=== PATIENT | female | born 1990 | race Caucasian/White ===

== ENCOUNTER → 2016-11-25 | Outpatient (CLI) | payer BC ==
--- NOTE | 2016-11-26 20:39 | US ---
Examination: Greater than 14 weeks transabdominal ultrasound with color Doppler and M-mode evaluatio n. HISTORY: FINDINGS: LMP is 07/04/2016 EVALUATION: Anterior placenta with a breech lie and grade 1. Visually amniotic fluid is within normal limits. Three-vessel cord is seen. Ventricles are within normal limits. Nuchal fold thickness is not provided. Four chamber heart is noted. Heart rate is 150 beats per minute, which is possibly irregular. BIOMETRY AND GESTATIONAL AGE: Biparietal diameter 3.8 cm. The abdominal circumference measures 16.2 cm. The femoral length is 3.2 cm with head circumference of 17 cm. Gestational age is 19 weeks and 4 days. The expected date of de livery is approximately 04/17/2017. Fetus weight is 355 grams. Overall the fetus is within the 30th p ercentile. Other detail anatomy summarized into PACs sheet after the images. No anatomical anomalies. IMPRESSION: 1. Single active IU with breech fetus. Anterior placenta with grade 1, no placenta previa. 2. The heart rate is noted is possibly irregular.
== END | disposition home or self-care (01) ==
LOC: MW.US 09:54
PROVIDERS: ATTEND Advanced Practice Midwife
DX: Z36 Encounter for antenatal screening of mother (principal); O32.1XX1 Maternal care for breech presentation, fetus 1; Z3A.19 19 weeks gestation of pregnancy
CPT/HCPCS: 76805; 76805-26

== ENCOUNTER → 2016-12-26 | Outpatient (CLI) | payer BC, MEDICAID | LOC: MW.CHOBGYN 08:59 | PROVIDERS: ATTEND Advanced Practice Midwife | DX: Z34.90 Encounter for supervision of normal pregnancy, unspecified, unspecified trimester (principal); N39.0 Urinary tract infection, site not specified | CPT/HCPCS: 81001; 87086; 87491; 87591 ==

== ENCOUNTER → 2017-01-14 | Outpatient (CLI) | payer BC, MEDICAID | LOC: MW.CHOBGYN 08:30 | PROVIDERS: ATTEND Advanced Practice Midwife | DX: O09.899 Supervision of other high risk pregnancies, unspecified trimester (principal) | CPT/HCPCS: 36415; 82950; 85027; 86850; 86900; 86901; J2790 ==

== ENCOUNTER 2017-04-01 15:01 | Inpatient (IN) | payer MEDICAID ==
[2017-04-01] MEDS ORDERED: Misoprostol 200 MCG Tab PO PRN (15:29)
[2017-04-01] MEDS ORDERED: Methylergonovine 0.2 MG/1 ML Amp IM PRN (15:29)
[2017-04-01] MEDS ORDERED: Water For Irrigation,Sterile 1,000 ML Container IRR PRN (15:29)
[2017-04-01] MEDS ORDERED: Carboprost Tromethamine 250 MCG/1 ML Amp IM PRN (15:29)
[2017-04-01] MEDS ORDERED: Sodium Chloride 0.9% 10 ML Syringe FLUSH PRN (15:29)
[2017-04-01] MEDS ORDERED: Lidocaine 1% 50 ML MDV INJECT PRN (15:29)
[2017-04-01] MEDS ORDERED: Sodium Chloride 0.9% 2.5 ML Syringe FLUSH PRN (15:29)
[2017-04-01] MEDS ORDERED: Nalbuphine 10 MG/1 ML Vial IVPUSH PRN (15:29)
[2017-04-01] MEDS ORDERED: Butorphanol 1 MG/ML SDV IVPUSH PRN (15:29)
[2017-04-01] MEDS ORDERED: Oxytocin/Lactated Ringers 30 UNIT/500 ML BAG IV SCH ×2 (15:30→20:00)
[2017-04-01] MEDS: Lactated Ringers 1,000 ML IV SCH ×3 (15:37→16:58)
--- NOTE | 2017-04-01 16:11 | PCM.LDHP ---
L&D History of Present Illness - General Date of Service: 04/01/17 Admit Problem/Dx: Patient Status Order with Admit Dx/Problem 04/01/17 15:29 Patient Status [ADT] Routine Admission Diagnosis/Problem Admission Diagnosis/Problem Source of Information: Patient History Limitations: Reports: No Limitations - History of Present Illness Improves with: Reports: None Worsens with: Reports: None Associated Symptoms: Reports: N - Related Data Allergies/Adverse Reactions: Allergies Allergy/AdvReac Type Severity Reaction Status Date / Time No Known Allergies Allergy Verified 04/01/17 15:29 H&P Review of Systems - Review of Systems: Review Of Systems: See Below General: Reports: No Symptoms HEENT: Reports: No Symptoms Pulmonary: Reports: No Symptoms Cardiovascular: Reports: No Symptoms Gastrointestinal: Reports: No Symptoms Genitourinary: Reports: No Symptoms Musculoskeletal: Reports: No Symptoms Skin: Reports: No Symptoms Psychiatric: Reports: No Symptoms Neurological: Reports: No Symptoms Hematologic/Lymphatic: Reports: No Symptoms Immunologic: Reports: No Symptoms L&D Exam - Exam Exam: See Below - Vital Signs Weight: 54.885 kg - Exam General: Alert, Oriented, Cooperative HEENT: Hearing Intact Lungs: Normal Respiratory Effort GI/Abdominal Exam: Soft, Non-Tender, No Organomegaly (gravid) Rectal Exam: Deferred Genitourinary: Cervical dilitation Back Exam: Full Range of Motion Extremities: Normal Range of Motion, Non-Tender, No Pedal Edema Skin: Warm, Dry, Intact Neurological: Cranial Nerves Intact Psychiatric: Alert, Normal Affect, Normal Mood - Patient Data Lab Results Last 24 hrs: Laboratory Results - last 24 hr 04/01/17 Range/Units 13:47 WBC 18.09 H (4.0-11.0) K/uL RBC 4.15 L (4.30-5.90) M/uL Hgb 12.0 (12.0-16.0) g/dL Hct 36.3 (36.0-46.0) % MCV 87.5 (80.0-98.0) fL MCH 28.9 (27.0-32.0) pg MCHC 33.1 (31.0-37.0) g/dL RDW Std Deviation 45.4 (28.0-62.0) fl RDW Coeff of Peyton 14 (11.0-15.0) % Plt Count 240 (150-400) K/uL MPV 11.20 (7.40-12.00) fL Nucleated RBC % 0.0 /100WBC Nucleated RBCs # 0 K/uL Result Diagrams: 04/01/17 13:47 - Problem List (1) Supervision of normal IUP (intrauterine ) in primigravida SNOMED Code(s): 82404589, 975602352, 695225942, 694647034 ICD Code: Z34.00 - ENCNTR FOR SUPRVSN OF NORMAL FIRST , UNSP TRIMESTER Status: Acute Priority: High Current Visit: Yes Qualifiers: Trimester: third trimester Qualified Code(s): Z34.03 - Encounter for supervision of normal first , third trimester Problem List Initiated/Reviewed/Updated: Yes Orders Last 24hrs: Active Orders 24 hr Category Date Time Status Patient Status [ADT] Routine ADT 04/01/17 15:29 Active Heart Tones [RC] CONTINUOUS Care 04/01/17 15:29 Active Non Stress Test [RC] PER UNIT ROUTINE Care 04/01/17 15:29 Active May Shower [RC] ASDIRECTED Care 04/01/17 15:29 Active Notify Provider [RC] PRN Care 04/01/17 15:29 Active Up ad Martita [RC] ASDIRECTED Care 04/01/17 15:29 Active Vaginal Exam [RC] PRN Care 04/01/17 15:29 Active Vital Signs [RC] PER UNIT ROUTINE Care 04/01/17 15:29 Active TYPE AND SCREEN [BBK] Routine Lab 04/01/17 13:47 Received Butorphanol [Stadol] Med 04/01/17 15:29 Active 1 mg IVPUSH Q1H PRN Carboprost Tromethamine [Hemabate DS] Med 04/01/17 15:29 Active 250 mcg IM ASDIRECTED PRN Lactated Ringers [Ringers, Lactated] 1,000 ml Med 04/01/17 15:30 Active IV ASDIRECTED Lidocaine 1% [Xylocaine 1%] Med 04/01/17 15:29 Active 50 ml INJECT .ONCE PRN Methylergonovine [Methergine] Med 04/01/17 15:29 Active 0.2 mg IM ASDIRECTED PRN Misoprostol [Cytotec] Med 04/01/17 15:29 Active 200 mcg PO .ONCE PRN Nalbuphine [Nubain] Med 04/01/17 15:29 Active 10 mg IVPUSH Q1H PRN Sodium Chloride 0.9% [Saline Flush] Med 04/01/17 15:29 Active 10 ml FLUSH ASDIRECTED PRN Sodium Chloride 0.9% [Saline Flush] Med 04/01/17 15:29 Active 2.5 ml FLUSH ASDIRECTED PRN Water For Irrigation,Sterile [Sterile Water for Med 04/01/17 15:29 Active Irrigation] 1,000 ml IRR ASDIRECTED PRN Scalp Electrode [WOMSER] Per Unit Routine Oth 04/01/17 15:29 Ordered Peripheral IV Insertion Adult [OM.PC] Routine Oth 04/01/17 15:29 Ordered Resuscitation Status Routine Resus Stat 04/01/17 15:29 Ordered Medication Orders Butorphanol Tartrate (Stadol) 1 mg IVPUSH Q1H PRN PRN Reason: Pain Carboprost Tromethamine (Hemabate Ds) 250 mcg IM ASDIRECTED PRN PRN Reason: Post Hemorrhage Lactated Ringer's (Ringers, Lactated) 1,000 mls @ 150 mls/hr IV ASDIRECTED MILTON Last Admin: 04/01/17 15:37 Dose: 999 mls/hr Lidocaine HCl (Xylocaine 1%) 50 ml INJECT .ONCE PRN PRN Reason: Laceration repair Methylergonovine Maleate (Methergine) 0.2 mg IM ASDIRECTED PRN PRN Reason: Post Hemorrhage Misoprostol (Cytotec) 200 mcg PO .ONCE PRN PRN Reason: Post Hemorrhage Nalbuphine HCl (Nubain) 10 mg IVPUSH Q1H PRN PRN Reason: Pain (severe 7-10) Stop: 04/01/17 17:30 Sodium Chloride (Saline Flush) 10 ml FLUSH ASDIRECTED PRN PRN Reason: Keep Vein Open Sodium Chloride (Saline Flush) 2.5 ml FLUSH ASDIRECTED PRN PRN Reason: Keep Vein Open Sterile Water (Sterile Water For Irrigation) 1,000 ml IRR ASDIRECTED PRN PRN Reason: delivery Assessment/Plan Comment:: Labor: A: 26yo G1Po EDC 04/10/2017 38 5/7wks labor, O-, RI, GBS neg. P: Admit to L&D, epidural now, anticipate
[2017-04-01] MEDS ORDERED: fentaNYL 100 MCG/2 ML SDV ONE (16:52)
--- NOTE | 2017-04-01 17:27 | PCM.PREANE ---
Preanesthetic Assessment - Anesthesia/Transfusion/Family Hx Anesthesia History: No Prior Anesthesia Family History of Anesthesia Reaction: No Transfusion History: No Prior Transfusion(s) - Review of Systems General: No Symptoms Pulmonary: No Symptoms Cardiovascular: No Symptoms Gastrointestinal: No Symptoms Neurological: No Symptoms Other: Reports: None - Physical Assessment NPO Status Date: 04/01/17 NPO Status Time: 17:22 (cl liquids) Height: 1.49 m Weight: 54.885 kg ASA Class: 2 Mental Status: Alert & Oriented x3 Airway Class: Mallampati = 2 Dentition: Reports: Normal Dentition Thyro-Mental Finger Breadths: 2 Mouth Opening Finger Breadths: 2 ROM/Head Extension: Full Lungs: Clear to Auscultation, Normal Respiratory Effort Cardiovascular: Regular Rate - Lab Values: Laboratory Last Values WBC 18.09 K/uL (4.0-11.0) H 04/01/17 13:47 RBC 4.15 M/uL (4.30-5.90) L 04/01/17 13:47 Hgb 12.0 g/dL (12.0-16.0) 04/01/17 13:47 Hct 36.3 % (36.0-46.0) 04/01/17 13:47 MCV 87.5 fL (80.0-98.0) 04/01/17 13:47 MCH 28.9 pg (27.0-32.0) 04/01/17 13:47 MCHC 33.1 g/dL (31.0-37.0) 04/01/17 13:47 RDW Std Deviation 45.4 fl (28.0-62.0) 04/01/17 13:47 RDW Coeff of Peyton 14 % (11.0-15.0) 04/01/17 13:47 Plt Count 240 K/uL (150-400) 04/01/17 13:47 MPV 11.20 fL (7.40-12.00) 04/01/17 13:47 Nucleated RBC % 0.0 /100WBC 04/01/17 13:47 Nucleated RBCs # 0 K/uL 04/01/17 13:47 Blood Type O NEGATIVE 04/01/17 13:47 Antibody Screen NEGATIVE 04/01/17 13:47 - Allergies Allergies/Adverse Reactions: Allergies Allergy/AdvReac Type Severity Reaction Status Date / Time No Known Allergies Allergy Verified 04/01/17 15:29 - Blood Blood Available: Yes Product(s) Available: PRBC - Acknowledgements Anesthesia Type Planned: Epidural Pt an Appropriate Candidate for the Planned Anesthesia: Yes Alternatives and Risks of Anesthesia Discussed w Pt/Guardian: Yes Pt/Guardian Understands and Agrees with Anesthesia Plan: Yes 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: Neurological History: Reports: Migraines - CURRENT (IN HOUSE) MEDS Current Meds: Current Medications Butorphanol Tartrate (Stadol) 1 mg IVPUSH Q1H PRN PRN Reason: Pain Carboprost Tromethamine (Hemabate Ds) 250 mcg IM ASDIRECTED PRN PRN Reason: Post Hemorrhage Lactated Ringer's (Ringers, Lactated) 1,000 mls @ 150 mls/hr IV ASDIRECTED MILTON Last Admin: 04/01/17 16:58 Dose: 999 mls/hr Lidocaine HCl (Xylocaine 1%) 50 ml INJECT .ONCE PRN PRN Reason: Laceration repair Methylergonovine Maleate (Methergine) 0.2 mg IM ASDIRECTED PRN PRN Reason: Post Hemorrhage Misoprostol (Cytotec) 200 mcg PO .ONCE PRN PRN Reason: Post Hemorrhage Nalbuphine HCl (Nubain) 10 mg IVPUSH Q1H PRN PRN Reason: Pain (severe 7-10) Stop: 04/01/17 17:30 Sodium Chloride (Saline Flush) 10 ml FLUSH ASDIRECTED PRN PRN Reason: Keep Vein Open Sodium Chloride (Saline Flush) 2.5 ml FLUSH ASDIRECTED PRN PRN Reason: Keep Vein Open Sterile Water (Sterile Water For Irrigation) 1,000 ml IRR ASDIRECTED PRN PRN Reason: delivery Discontinued Medications Fentanyl (Sublimaze) Confirm Administered Dose 100 mcg .ROUTE .STK-MED ONE Stop: 04/01/17 16:53 Oxytocin/Lactated Ringer's (Pitocin In Lr 30 Units/500 Ml) 30 unit in 500 mls @ 999 mls/hr IV TITRATE MILTON PRN Reason: 999 MUNITS/MIN Stop: 04/01/17 16:01 Ropivacaine/Fentanyl/NS (Fentanyl 2 Mcg-Ropiv 0.2%-Ns) Confirm Administered Dose 100 mls @ as directed .ROUTE .[employer] ONE Stop: 04/01/17 16:54 - Pre-Procedure Checklist Attending Provider Aware: Yes Chart Reviewed: Yes Consent Signed: Yes Labs Reviewed: Yes VS/FHR Reviewed: Yes Patient Identification Confirmation Method: Reports: Verbal Patient Pt an Appropriate Candidate for the Planned Anesthesia: Yes Alternatives and Risks of Anesthesia Discussed w Pt/Guardian: Yes - Procedure Procedure Start Date: 04/01/17 Procedure Start Time: 16:[address]: Reports: Blood Pressure, Heart Rate, SPO2 Functional IV: Yes Safety Measures: Reports: Patient Identified, Procedure Verified, Site Verified , Procedure Time Out Patient Position: Reports: Sitting (@ 1656) Prep: Reports: Betadine x3 Local Anesthetic: Reports: Intradermal Wheal w Lidocaine 1% Regional Placement Level: Reports: L3-4 Needle: Reports: 17 g Touhy Approach: Reports: Midline Technique: Reports: ROSA Glass Syringe (with 3 ml sterile water) ROSA Needle Depth (cm): 4 cm Parasthesia: Reports: None Fluid Obtained: Reports: None Catheter Depth at Skin (cm): 20 cm Test Dose Time: 17:03 Test Dose Medication: Reports: Lidocaine 1.5% w Epinephrine 1:200,000 (3 ml) Test Dose Response: Reports: Negative Loading Dose Time: 17:09 Loading Dose Medication: 100 mcg fentanyl Loading Dose Patient Position: semi fowlers with YULIA Continuous Infusion Start Time: 17:15 Continuous Infusion Medication: 100 ml 0.2% ropivacaine with 200 mcg fentanyl added Continuous Infusion Rate: 6 ml/hr Continuous Infusion PCS Bolus Option: 5 ml every 15 min Patient Position Post Placement: Reports: Semi-fowlers/YULIA Post-procedure Pain Level: "0/10" VS and FHR Monitored in Unit Post Placement: Yes Procedure End Date: 04/01/17 Procedure End Time: 17:34 Procedure Comment: Pt tolerated procedure well.
[2017-04-02] MEDS: Lactated Ringers 1,000 ML IV SCH ×4 (01:03→22:15)
[2017-04-02] MEDS ORDERED: Acetaminophen 500 MG Tab PO ONE (03:58)
--- NOTE | 2017-04-02 04:19 | PCM.SN ---
- Free Text/Narrative Note: [id number]: Called for refill of epidural infusion. Pt reports minimal discomfort to abdomen with contractions but is having back pain possibly related to her history of sciatic nerve pain/problems secondary to scoliosis. She has used EMT/DISPATCHER button which has provided some relief. 100 ml 0.2% ropivacaine with 2mcg/ ml fentanyl replaced and rate resumed as prior. VSS.
[2017-04-02] MEDS ORDERED: Oxytocin 10 Units/1 ML SDV ONE ×2 (15:47)
[2017-04-02] MEDS ORDERED: Methylergonovine 0.2 MG/1 ML Amp ONE (15:50)
[2017-04-02] MEDS ORDERED: Carboprost Tromethamine 250 MCG/1 ML Amp ONE (15:50)
[2017-04-02] MEDS ORDERED: fentaNYL 100 MCG/2 ML SDV ONE ×2 (16:07→17:10)
[2017-04-02] MEDS ORDERED: Bupivacaine 0.5% 10 ML SDV ONE (16:07)
[2017-04-02] MEDS ORDERED: Citric Acid/Sodium Citrate Solution 30 ML Cup ONE (16:21)
[2017-04-02] MEDS ORDERED: Ondansetron 4 MG/2 ML SDV ONE (16:36)
[2017-04-02] MEDS ORDERED: Morphine PF 10 MG/10 ML SDV ONE (16:40)
[2017-04-02] MEDS ORDERED: Phenylephrine/Normal Saline 100 MCG/ML 10 ML Syringe ONE (16:55)
[2017-04-02] MEDS ORDERED: Octyl 2-Cyanoacrylate 1 Tube ONE (17:03)
[2017-04-02] MEDS ORDERED: Benzocaine/Menthol 20%-0.5% Spray 78 GM Cannister TOP PRN (17:15)
[2017-04-02] MEDS ORDERED: oxyCODONE 5 MG Tab PO PRN (17:15)
[2017-04-02] MEDS ORDERED: Docusate Sodium 100 MG Cap PO PRN (17:15)
[2017-04-02] MEDS ORDERED: Bisacodyl 10 MG Supp RECTAL PRN ×2 (17:15→21:30)
[2017-04-02] MEDS ORDERED: Ibuprofen 400 MG Tab PO PRN (17:15)
[2017-04-02] MEDS ORDERED: Lanolin 100% Cream 7 GM Tube TOP PRN ×2 (17:15→21:30)
[2017-04-02] MEDS ORDERED: Witch Hazel Medicated Pads 40/Jar TOP PRN (17:15)
[2017-04-02] MEDS ORDERED: Ibuprofen 800 MG Tab PO PRN ×2 (17:15→21:30)
[2017-04-02] MEDS ORDERED: Acetaminophen 500 MG Tab PO PRN ×2 (17:15)
--- NOTE | 2017-04-02 17:18 | PCM.OPNOTE ---
- General Post-Op/Procedure Note Date of Surgery/Procedure: 04/02/17 Operative Procedure(s): Primary C/ Section Pre Op Diagnosis: Term Faliar to progress Post-Op Diagnosis: Same Anesthesia Technique: Combo Spinal/Epidural Primary Surgeon: Boubacar Rueda Bread Stacker: Deborah Hobson EBL in mLs: 700 Complications: None Condition: Good Free Text/Narrative:: Intake & Output 04/02/17 04/02/17 04/02/17 06:59 14:59 22:59 Intake Total 1999 Balance 2000
[2017-04-02] MEDS ORDERED: Acetaminophen/oxyCODONE 325-5 MG Tab PO PRN ×3 (17:39→21:30)
[2017-04-02] MEDS ORDERED: Meperidine PF 25 MG/ML Syringe IVPUSH ONE (17:39)
[2017-04-02] MEDS ORDERED: Naloxone 0.4 MG/ML Syringe IVPUSH PRN (17:40)
[2017-04-02] MEDS ORDERED: Nalbuphine 10 MG/1 ML Vial IVPUSH PRN (17:40)
[2017-04-02] MEDS ORDERED: Meperidine PF 50 MG/ML Syringe ONE (17:43)
--- NOTE | 2017-04-02 17:45 | PCM.POSTAN ---
POST ANESTHESIA ASSESSMENT - MENTAL STATUS Mental Status: Alert, Oriented - RESPIRATORY Respiratory Status: respiratory rate WNL, Airway Patent, O2 Saturation Stable - CARDIOVASCULAR CV Status: Pulse Rate WNL, Blood Pressure Stable - GASTROINTESTINAL GI Status: No Symptoms - PAIN Pain Score: 0 - POST OP HYDRATION Hydration Status: Adequate & Stable - OBSERVATIONS Free Text/Narrative:: Pt stable. She states her headache is much better after the IV Tylenol. VSS. No nausea at this time.
[2017-04-02] MEDS ORDERED: Meperidine PF 50 MG/ML Syringe IVPUSH ONE (18:00)
[2017-04-02] MEDS ORDERED: diphenhydrAMINE 50 MG/ML SDV IVPUSH PRN (21:30)
[2017-04-02] MEDS ORDERED: Ondansetron 4 MG/2 ML SDV IV PRN (21:30)
[2017-04-02] MEDS: Ketorolac 30 MG/ML SDV IVPUSH SCH (22:11)
--- NOTE | 2017-04-03 | OR ---
SURGEON: Boubacar Rueda MD DATE OF PROCEDURE: PREOPERATIVE DIAGNOSIS: Term , primary section due to failure to progress, possible cephalopelvic disproportion. POSTOPERATIVE DIAGNOSIS: Term , primary section due to failure to progress, possible cephalopelvic disproportion. OPERATION PERFORMED: Primary low transverse section. WHEEL MILL OPERATOR: Deborah Hobson. ANESTHESIA: Epidural by Allyssa Arriaza and Dr. Marie. ESTIMATED BLOOD LOSS: 700 mL. COMPLICATION: None. FINDINGS: Viable male fetus, cried immediately. score reported to be 8 and 9. The weight is not available. INDICATION FOR SURGERY: This patient is followed in our clinic primarily by our nurse computer systems technician. She is admitted in active labor. She is admitted 4 cm. She progressed to 7 to 8 cm. In spite of adequate contraction with Pitocin stimulation, the patient was continued to be 7 to 8, vertex and -3. The patient is rather short stature and the possibility of CPD entertained and failure to progress. The decision made to do primary low transverse section. PROCEDURE IN DETAIL: The patient was brought to the OR, properly identified, and after adequate level of epidural anesthesia, with the patient prepped and draped in sterile fashion as usual with a Aiken catheter in the bladder, low transverse Pfannenstiel skin incision was done. Sondra fascia, rectus fascia was opened in direction of the incision. The two recti muscles were and peritoneal cavity was entered. A bladder flap was raised in the usual manner pushing the bladder away from the lower uterine segment. Low transverse uterine incision was done and extended manually and fetus was in a vertex position, delivered without any problem and the fetus cried immediately. score later on reported to be 8 and 9. The placenta delivered spontaneous, complete, and intact and then repair of the lower uterine segment was done with 2-0 Vicryl continuous interlocking in 2 layers. Reperitonealization with 3-0 Vicryl continuous. Inspection of the operative field shows no oozing, no bleeding. The peritoneal cavity evacuated completely from all blood and blood clot and closed with 3-0 Vicryl continuous. The rectus fascia was closed with #1 PDS double strand continuous and Sondra's fascia with 3-0 Vicryl continuous and skin was closed in a subcuticular fashion and Dermabond. Instrument and sponge count was correct. The patient tolerated the procedure well and went to recovery room in stable general condition. PETER ALVAREZ /[id number]
[2017-04-03] MEDS: Ketorolac 30 MG/ML SDV IVPUSH SCH ×3 (03:28→15:08)
[2017-04-03] MEDS ORDERED: Furosemide 20 MG/2 ML VIAL IVPUSH ONE (03:49)
--- NOTE | 2017-04-03 05:52 | PCM48HPAN ---
Post Anesthesia Note - EVALUATION WITHIN 48HRS OF ANESTHETIC Vital Signs in Normal Range: Yes Patient Participated in Evaluation: Yes Respiratory Function Stable: Yes Airway Patent: Yes Cardiovascular Function Stable: Yes Hydration Status Stable: Yes Pain Control Satisfactory: Yes Nausea and Vomiting Control Satisfactory: Yes Mental Status Recovered: Yes - COMMENTS/OBSERVATIONS Free Text/Narrative:: Nursing staff relays that pt has had low urine output and received lasix overnight with improved results
[2017-04-03] MEDS: Lactated Ringers 1,000 ML IV SCH (06:42)
--- NOTE | 2017-04-03 07:54 | PCM.PNPP ---
- General Info Date of Service: 04/03/17 Admission Dx/Problem (Free Text): Patient Status Order with Admit Dx/Problem 04/01/17 15:29 Patient Status [ADT] Routine Admission Diagnosis/Problem Admission Diagnosis/Problem Functional Status: Reports: Pain Controlled, Tolerating Diet, Ambulating - Review of Systems General: Reports: No Symptoms HEENT: Reports: No Symptoms Pulmonary: Reports: No Symptoms Cardiovascular: Reports: No Symptoms Gastrointestinal: Reports: No Symptoms Genitourinary: Reports: No Symptoms, Other (decreased output) Musculoskeletal: Reports: No Symptoms Skin: Reports: No Symptoms Neurological: Reports: No Symptoms Psychiatric: Reports: No Symptoms - General Info Date of Service: 04/03/17 - Patient Data Vital Signs - Most Recent: Last Vital Signs Temp 36.6 C 04/03/17 04:00 Pulse 105 H 04/03/17 06:58 Resp 17 04/03/17 06:58 BP 123/57 L 04/03/17 04:00 Pulse Ox 96 04/03/17 06:58 Weight - Most Recent: 54.885 kg I&O - Last 24 Hours: Intake & Output 04/02/17 04/03/17 04/03/17 22:59 06:59 14:59 Intake Total 2200 995 Output Total 75 275 Balance 2125 720 Lab Results - Last 24 Hours: Laboratory Results - last 24 hr 04/02/17 04/03/17 Range/Units 18:43 05:09 Hgb 9.0 L (12.0-16.0) g/dL Hct 27.5 L (36.0-46.0) % Rhogam Indicated NO, MOM+BABY RH NEG Med Orders - Current: Current Medications Bisacodyl (Dulcolax) 10 mg RECTAL .ONCE PRN PRN Reason: Constipation Butorphanol Tartrate (Stadol) 1 mg IVPUSH Q1H PRN PRN Reason: Pain Carboprost Tromethamine (Hemabate Ds) 250 mcg IM ASDIRECTED PRN PRN Reason: Post Hemorrhage Diphenhydramine HCl (Benadryl) 25 mg IVPUSH Q6H PRN PRN Reason: Itching or Nausea Docusate Sodium (Colace) 100 mg PO BID [place] Emollient Ointment (Lansinoh Hpa) 0 gm TOP ASDIRECTED PRN PRN Reason: Sore Nipples Lactated Ringer's (Ringers, Lactated) 1,000 mls @ 150 mls/hr IV ASDIRECTED [facility] Last Admin: 04/02/17 15:59 Dose: 999 mls/hr Oxytocin/Lactated Ringer's (Pitocin In Lr 30 Units/500 Ml) 30 unit in 500 mls @ 2 mls/hr IV TITRATE [place]; 2 MUNITS/MIN PRN Reason: Protocol Last Titration: 04/02/17 14:11 Dose: 0 munits/min, 0 mls/hr Lactated Ringer's (Ringers, Lactated) 1,000 mls @ 125 mls/hr IV ASDIRECTED [facility] Last Admin: 04/03/17 06:42 Dose: 125 mls/hr Ibuprofen (Motrin) 800 mg PO Q8H PRN PRN Reason: mild pain or fever Ketorolac Tromethamine (Toradol) 30 mg IVPUSH Q6H [facility] Stop: 04/03/17 21:31 Last Admin: 04/03/17 03:28 Dose: 30 mg Lidocaine HCl (Xylocaine 1%) 50 ml INJECT .ONCE PRN PRN Reason: Laceration repair Methylergonovine Maleate (Methergine) 0.2 mg IM ASDIRECTED PRN PRN Reason: Post Hemorrhage Misoprostol (Cytotec) 200 mcg PO .ONCE PRN PRN Reason: Post Hemorrhage Nalbuphine HCl (Nubain) 2.5 mg IVPUSH Q3H PRN PRN Reason: Pruritis Stop: 04/03/17 17:41 Naloxone HCl (Narcan) 0.1 mg IVPUSH ONETIME PRN PRN Reason: RR<6 WITH STIMULATION Stop: 04/03/17 17:41 Ondansetron HCl (Zofran) 4 mg IV Q4H PRN PRN Reason: Nausea/Vomiting Oxycodone/Acetaminophen (Percocet 325-5 Mg) 1 tab PO Q4H PRN PRN Reason: Pain (moderate 4-6) Oxycodone/Acetaminophen (Percocet 325-5 Mg) 2 tab PO Q4H PRN PRN Reason: Pain (moderate 4-6) Sodium Chloride (Saline Flush) 10 ml FLUSH ASDIRECTED PRN PRN Reason: Keep Vein Open Sodium Chloride (Saline Flush) 2.5 ml FLUSH ASDIRECTED PRN PRN Reason: Keep Vein Open Sterile Water (Sterile Water For Irrigation) 1,000 ml IRR ASDIRECTED PRN PRN Reason: delivery Discontinued Medications Acetaminophen (Tylenol Extra Strength) 1,000 mg PO ONETIME ONE Stop: 04/02/17 03:59 Bupivacaine HCl (Sensorcaine-Mpf 0.5%) Confirm Administered Dose 20 ml .ROUTE .STK-MED ONE Stop: 04/02/17 16:08 Last Admin: 04/03/17 01:39 Dose: Not Given Carboprost Tromethamine (Hemabate Ds) Confirm Administered Dose 250 mcg .ROUTE .STK-MED ONE Stop: 04/02/17 15:51 Citric Acid/Sodium Citrate (Bicitra Solution) Confirm Administered Dose 30 ml .ROUTE .STK-MED ONE Stop: 04/02/17 16:22 Last Admin: 04/03/17 01:40 Dose: Not Given Docusate Sodium (Colace) 100 mg PO BID PRN PRN Reason: Constipation Last Admin: 04/02/17 21:10 Dose: 100 mg Fentanyl (Sublimaze) Confirm Administered Dose 100 mcg .ROUTE .STK-MED ONE Stop: 04/01/17 16:53 Fentanyl (Sublimaze) Confirm Administered Dose 100 mcg .ROUTE .STK-MED ONE Stop: 04/02/17 16:08 Last Admin: 04/03/17 01:40 Dose: Not Given Fentanyl (Sublimaze) Confirm Administered Dose 100 mcg .ROUTE .STK-MED ONE Stop: 04/02/17 17:11 Furosemide (Lasix) 20 mg IVPUSH ONETIME ONE Stop: 04/03/17 03:50 Last Admin: 04/03/17 04:23 Dose: 20 mg Oxytocin/Lactated Ringer's (Pitocin In Lr 30 Units/500 Ml) 30 unit in 500 mls @ 999 mls/hr IV TITRATE [place] PRN Reason: 999 MUNITS/MIN Stop: 04/01/17 16:01 Last Infusion: 04/01/17 22:31 Dose: 4 munits/min, 4 mls/hr Ropivacaine/Fentanyl/NS (Fentanyl 2 Mcg-Ropiv 0.2%-Ns) Confirm Administered Dose 100 mls @ as directed .ROUTE .STK-MED ONE Stop: 04/01/17 16:54 Ropivacaine/Fentanyl/NS (Fentanyl 2 Mcg-Ropiv 0.2%-Ns) Confirm Administered Dose 100 mls @ as directed .ROUTE .STK-MED ONE Stop: 04/02/17 03:48 Last Admin: 04/03/17 01:37 Dose: Not Given Ropivacaine/Fentanyl/NS (Fentanyl 2 Mcg-Ropiv 0.2%-Ns) Confirm Administered Dose 100 mls @ as directed .ROUTE .STK-MED ONE Stop: 04/02/17 10:08 Last Admin: 04/03/17 01:39 Dose: Not Given Cefazolin Sodium/Dextrose (Ancef) Confirm Administered Dose 50 mls @ as directed .ROUTE .STK-MED ONE Stop: 04/02/17 15:47 Acetaminophen (Ofirmev) Confirm Administered Dose 100 mls @ as directed IV .STK- MED ONE Stop: 04/02/17 17:21 Meperidine HCl (Demerol) 12.5 mg IVPUSH ONETIME ONE Stop: 04/02/17 17:40 Meperidine HCl (Demerol) 12.5 mg IVPUSH ONETIME ONE Stop: 04/02/17 18:01 Last Admin: 04/03/17 04:55 Dose: Not Given Meperidine HCl (Demerol) Confirm Administered Dose 50 mg .ROUTE .STK-MED ONE Stop: 04/02/17 17:44 Last Admin: 04/02/17 17:48 Dose: 12.5 mg Methylergonovine Maleate (Methergine) Confirm Administered Dose 0.2 mg .ROUTE .STK-MED ONE Stop: 04/02/17 15:51 Morphine Sulfate (Duramorph Pf) Confirm Administered Dose 10 mg .ROUTE .STK-MED ONE Stop: 04/02/17 16:41 Nalbuphine HCl (Nubain) 10 mg IVPUSH Q1H PRN PRN Reason: Pain (severe 7-10) Stop: 04/01/17 17:30 Octyl Cyanoacrylate (Dermabond Advance) Confirm Administered Dose 1 applic .ROUTE .STK-MED ONE Stop: 04/02/17 17:04 Ondansetron HCl (Zofran) Confirm Administered Dose 4 mg .ROUTE .STK-MED ONE Stop: 04/02/17 16:37 Oxycodone/Acetaminophen (Percocet 325-5 Mg) 1 tab PO .Q4HRS PRN PRN Reason: Breakthrough Pain Stop: 04/03/17 17:30 Last Admin: 04/02/17 21:10 Dose: 1 tab Oxytocin (Pitocin) Confirm Administered Dose 10 unit .ROUTE .STK-MED ONE Stop: 04/02/17 15:48 Oxytocin (Pitocin) Confirm Administered Dose 20 unit .ROUTE .STK-MED ONE Stop: 04/02/17 15:48 Phenylephrine HCl (Phenylephrine In Ns 100 Mcg/Ml) Confirm Administered Dose 1 mg .ROUTE .STK-MED ONE Stop: 04/02/17 16:56 - Infant Interaction Infant Disposition, : [place] in Room with Family Interaction: Holding Infant Feeding: Attempted ; Nursed Fair/Poor, Continues to Breastfeed, Difficulty with Latch-on Support Person: Significant Other - Recovery Exam Fundal Tone: Firm Fundal Level: At Umbilicus Fundal Placement: Midline Lochia Amount: Small Lochia Color: Rubra/Red Perineum Description: Edematous Episiotomy/Laceration: None Bladder Status: Indwelling Catheter in Place Urinary Elimination: Indwelling Catheter - Exam General: Alert, Oriented, Cooperative, No Acute Distress Lungs: Clear to Auscultation, Normal Respiratory Effort Cardiovascular: Regular Rate, Regular Rhythm, No Murmurs GI/Abdominal Exam: Normal Bowel Sounds, Soft, No Organomegaly, No Distention, No Abnormal Bruit, No Mass, Tender (at dressing site) Extremities: Normal Range of Motion, Non-Tender, Pedal Edema Skin: Warm, Dry, Intact Wound/Incisions: Dressing Dry and Intact, No Drainage Neurological: No New Focal Deficit, Normal Speech, Normal Tone Psy/Mental Status: Alert, Normal Affect, Normal Mood - Problem List & Annotations (1) Supervision of normal IUP (intrauterine ) in primigravida SNOMED Code(s): 39337295, 329225692, 719226607, 282600183 Code(s): Z34.00 - ENCNTR FOR SUPRVSN OF NORMAL FIRST , UNSP TRIMESTER Status: Acute Priority: High Current Visit: Yes Qualifiers: Trimester: third trimester Qualified Code(s): Z34.03 - Encounter for supervision of normal first , third trimester (2) Failure to progress in labor SNOMED Code(s): 841030582 Code(s): O62.2 - OTHER UTERINE INERTIA Status: Acute Priority: High Current Visit: Yes (3) Status post primary low transverse section SNOMED Code(s): 160846381, 966617483, 281519421, 677686511 Code(s): Z98.891 - HISTORY OF UTERINE SCAR FROM PREVIOUS SURGERY Status: Acute Priority: High Current Visit: Yes - Problem List Review Problem List Initiated/Reviewed/Updated: Yes - Assessment Assessment:: Post day 1 A: status post PCS day 1, VSS, AF, decreased urine output has improved with lasix, siddiqui remains in, Edema in legs and feet +3 pitting, compression leggings on, breast feeding with difficulty latch, Bonding well with son. FOB/ Partner at bs holding infant. Stable - Plan Plan:: Labor: A: 26yo G1Po EDC 04/10/2017 38 5/7wks labor, O-, RI, GBS neg. P: Admit to L&D, epidural now, anticipate Post /post op day 1 Continue plan of care, d/c siddiqui and IV today, increase ambulation, assist with breast feeding.
[2017-04-03] MEDS ORDERED: Docusate Sodium 100 MG Cap PO SCH (09:00)
[2017-04-03] MEDS ORDERED: Ibuprofen 800 MG Tab PO PRN ×2 (20:11→23:00)
[2017-04-03] MEDS ORDERED: Bisacodyl 10 MG Supp RECTAL PRN ×2 (20:11→20:16)
[2017-04-03] MEDS ORDERED: Docusate Sodium 100 MG Cap PO PRN (20:11)
[2017-04-03] MEDS ORDERED: Witch Hazel Medicated Pads 40/Jar TOP PRN (20:11)
[2017-04-03] MEDS ORDERED: Ibuprofen 400 MG Tab PO PRN (20:11)
[2017-04-03] MEDS ORDERED: Lanolin 100% Cream 7 GM Tube TOP PRN ×2 (20:11→20:16)
[2017-04-03] MEDS ORDERED: Benzocaine/Menthol 20%-0.5% Spray 78 GM Cannister TOP PRN (20:11)
[2017-04-03] MEDS ORDERED: Acetaminophen 500 MG Tab PO PRN ×2 (20:11)
[2017-04-03] MEDS ORDERED: oxyCODONE 5 MG Tab PO PRN (20:11)
[2017-04-03] MEDS ORDERED: diphenhydrAMINE 50 MG/ML SDV IVPUSH PRN (20:16)
[2017-04-03] MEDS ORDERED: Ondansetron 4 MG/2 ML SDV IV PRN (20:16)
[2017-04-03] MEDS ORDERED: Acetaminophen/oxyCODONE 325-5 MG Tab PO PRN (20:16)
[2017-04-03] MEDS ORDERED: Lactated Ringers 1,000 ML IV SCH (20:30)
[2017-04-03] MEDS: Docusate Sodium 100 MG Cap PO SCH (21:51)
[2017-04-03] MEDS: Acetaminophen/oxyCODONE 325-5 MG Tab PO PRN (21:53)
--- NOTE | 2017-04-04 08:09 | PCM.DCSUM1 ---
Discharge Summary - Hospital Course Free Text/Narrative:: Discharge home with infant. Follow up 10 days for incision check and 6 weeks or sooner if needed for post visit. - Discharge Data Discharge Date: 04/04/17 Discharge Disposition: Home, Self-Care 01 Condition: Good - Discharge Diagnosis/Problem(s) (1) Supervision of normal IUP (intrauterine ) in primigravida SNOMED Code(s): 91202071, 468893834, 412091329, 810945635 ICD Code: Z34.00 - ENCNTR FOR SUPRVSN OF NORMAL FIRST , UNSP TRIMESTER Status: Acute Priority: High Current Visit: Yes Qualifiers: Trimester: third trimester Qualified Code(s): Z34.03 - Encounter for supervision of normal first , third trimester (2) Failure to progress in labor SNOMED Code(s): 419156808 ICD Code: O62.2 - OTHER UTERINE INERTIA Status: Acute Priority: High Current Visit: Yes (3) Status post primary low transverse section SNOMED Code(s): 096266869, 789068728, 573007599, 970195609 ICD Code: Z98.891 - HISTORY OF UTERINE SCAR FROM PREVIOUS SURGERY Status: Acute Priority: High Current Visit: Yes - Patient Summary/Data Operative Procedure(s) Performed: Primary C/ Section - Patient Instructions Diet: Usual Diet as Tolerated Activity: As Tolerated, Rest and Relax Today Driving: Do Not Drive Showering/Bathing: May Shower Wound/Incision Care: Keep Operative Site/Wound Site Clean and Dry Notify Provider of: Fever, Increased Pain, Swelling and Redness, Drainage, Nausea and/or Vomiting Other/Special Instructions: Discharge home with . Follow up 10 days for incision check and 6 weeks or sooner if needed for post visit. - Discharge Plan Referrals: [facility] [Outside] Deborah Hobson CNM [Primary Care Provider] - (1 week- April 09 @ 1:30pm w/ Deborah Hobson 6 week- May 15 @ 9:30am w/ Deborah Hobson ) - General Info Date of Service: 04/04/17 Admission Dx/Problem (Free Text: Patient Status Order with Admit Dx/Problem 04/01/17 15:29 Patient Status [ADT] Routine Admission Diagnosis/Problem Admission Diagnosis/Problem Functional Status: Reports: Pain Controlled, Tolerating Diet, Ambulating, Urinating - Review of Systems General: Reports: No Symptoms HEENT: Reports: No Symptoms Pulmonary: Reports: No Symptoms Cardiovascular: Reports: No Symptoms Gastrointestinal: Reports: No Symptoms Genitourinary: Reports: No Symptoms Musculoskeletal: Reports: No Symptoms Skin: Reports: No Symptoms Neurological: Reports: No Symptoms Psychiatric: Reports: No Symptoms - Patient Data Vitals - Most Recent: Last Vital Signs Temp 36.7 C 04/04/17 04:33 Pulse 98 04/04/17 04:33 Resp 17 04/04/17 04:33 BP 125/70 04/04/17 04:33 Pulse Ox 98 04/04/17 04:33 Weight - Most Recent: 54.885 kg I&O - Last 24 hours: Intake & Output 04/03/17 04/04/17 04/04/17 22:59 06:59 14:59 Intake Total 1000 Output Total 1200 Balance -200 Med Orders - Current: Current Medications Bisacodyl (Dulcolax) 10 mg RECTAL .ONCE PRN PRN Reason: Constipation Diphenhydramine HCl (Benadryl) 25 mg IVPUSH Q6H PRN PRN Reason: Itching or Nausea Docusate Sodium (Colace) 100 mg PO BID [facility] Last Admin: 04/03/17 21:51 Dose: 100 mg Emollient Ointment (Lansinoh Hpa) 0 gm TOP ASDIRECTED PRN PRN Reason: Sore Nipples Lactated Ringer's (Ringers, Lactated) 1,000 mls @ 125 mls/hr IV ASDIRECTED [facility] Ibuprofen (Motrin) 800 mg PO Q8H PRN PRN Reason: mild pain or fever Last Admin: 04/04/17 01:17 Dose: 800 mg Ondansetron HCl (Zofran) 4 mg IV Q4H PRN PRN Reason: Nausea/Vomiting Oxycodone/Acetaminophen (Percocet 325-5 Mg) 1 tab PO Q4H PRN PRN Reason: Pain (moderate 4-6) Last Admin: 04/03/17 21:53 Dose: 1 tab Oxycodone/Acetaminophen (Percocet 325-5 Mg) 2 tab PO Q4H PRN PRN Reason: Pain (moderate 4-6) Discontinued Medications Acetaminophen (Tylenol Extra Strength) 1,000 mg PO ONETIME ONE Stop: 04/02/17 03:59 Last Admin: 04/03/17 07:46 Dose: Not Given Acetaminophen (Tylenol Extra Strength) 500 mg PO Q4H PRN PRN Reason: Pain Acetaminophen (Tylenol Extra Strength) 1,000 mg PO Q4H PRN PRN Reason: Pain Benzocaine/Menthol (Dermoplast Pain Relief 20%-0.5% [place]) 78 gm TOP ASDIRECTED PRN PRN Reason: Perineal Comfort Measure Bisacodyl (Dulcolax) 10 mg RECTAL .ONCE PRN PRN Reason: Constipation Bisacodyl (Dulcolax) 10 mg RECTAL .ONCE PRN PRN Reason: Constipation Bupivacaine HCl (Sensorcaine-Mpf 0.5%) Confirm Administered Dose 20 ml .ROUTE .STK-MED ONE Stop: 04/02/17 16:08 Last Admin: 04/03/17 01:39 Dose: Not Given Butorphanol Tartrate (Stadol) 1 mg IVPUSH Q1H PRN PRN Reason: Pain Carboprost Tromethamine (Hemabate Ds) 250 mcg IM ASDIRECTED PRN PRN Reason: Post Hemorrhage Carboprost Tromethamine (Hemabate Ds) Confirm Administered Dose 250 mcg .ROUTE .STK-MED ONE Stop: 04/02/17 15:51 Citric Acid/Sodium Citrate (Bicitra Solution) Confirm Administered Dose 30 ml .ROUTE .STK-MED ONE Stop: 04/02/17 16:22 Last Admin: 04/03/17 01:40 Dose: Not Given Diphenhydramine HCl (Benadryl) 25 mg IVPUSH Q6H PRN PRN Reason: Itching or Nausea Docusate Sodium (Colace) 100 mg PO BID PRN PRN Reason: Constipation Last Admin: 04/02/17 21:10 Dose: 100 mg Docusate Sodium (Colace) 100 mg PO BID [place] Last Admin: 04/03/17 09:05 Dose: 100 mg Docusate Sodium (Colace) 100 mg PO BID PRN PRN Reason: Constipation Emollient Ointment (Lansinoh Hpa) 0 gm TOP ASDIRECTED PRN PRN Reason: Sore Nipples Emollient Ointment (Lansinoh Hpa) 0 gm TOP ASDIRECTED PRN PRN Reason: Sore Nipples Fentanyl (Sublimaze) Confirm Administered Dose 100 mcg .ROUTE .STK-MED ONE Stop: 04/01/17 16:53 Fentanyl (Sublimaze) Confirm Administered Dose 100 mcg .ROUTE .STK-MED ONE Stop: 04/02/17 16:08 Last Admin: 04/03/17 01:40 Dose: Not Given Fentanyl (Sublimaze) Confirm Administered Dose 100 mcg .ROUTE .STK-MED ONE Stop: 04/02/17 17:11 Furosemide (Lasix) 20 mg IVPUSH ONETIME ONE Stop: 04/03/17 03:50 Last Admin: 04/03/17 04:23 Dose: 20 mg Lactated Ringer's (Ringers, Lactated) 1,000 mls @ 150 mls/hr IV ASDIRECTED [place] Last Admin: 04/02/17 15:59 Dose: 999 mls/hr Oxytocin/Lactated Ringer's (Pitocin In Lr 30 Units/500 Ml) 30 unit in 500 mls @ 999 mls/hr IV TITRATE [place] PRN Reason: 999 MUNITS/MIN Stop: 04/01/17 16:01 Last Infusion: 04/01/17 22:31 Dose: 4 munits/min, 4 mls/hr Ropivacaine/Fentanyl/NS (Fentanyl 2 Mcg-Ropiv 0.2%-Ns) Confirm Administered Dose 100 mls @ as directed .ROUTE .STK-MED ONE Stop: 04/01/17 16:54 Oxytocin/Lactated Ringer's (Pitocin In Lr 30 Units/500 Ml) 30 unit in 500 mls @ 2 mls/hr IV TITRATE [place]; 2 MUNITS/MIN PRN Reason: Protocol Last Titration: 04/02/17 14:11 Dose: 0 munits/min, 0 mls/hr Ropivacaine/Fentanyl/NS (Fentanyl 2 Mcg-Ropiv 0.2%-Ns) Confirm Administered Dose 100 mls @ as directed .ROUTE .STK-MED ONE Stop: 04/02/17 03:48 Last Admin: 04/03/17 01:37 Dose: Not Given Ropivacaine/Fentanyl/NS (Fentanyl 2 Mcg-Ropiv 0.2%-Ns) Confirm Administered Dose 100 mls @ as directed .ROUTE .STK-MED ONE Stop: 04/02/17 10:08 Last Admin: 04/03/17 01:39 Dose: Not Given Cefazolin Sodium/Dextrose (Ancef) Confirm Administered Dose 50 mls @ as directed .ROUTE .STK-MED ONE Stop: 04/02/17 15:47 Acetaminophen (Ofirmev) Confirm Administered Dose 100 mls @ as directed IV .STK- MED ONE Stop: 04/02/17 17:21 Lactated Ringer's (Ringers, Lactated) 1,000 mls @ 125 mls/hr IV ASDIRECTED [facility] Last Admin: 04/03/17 06:42 Dose: 125 mls/hr Ibuprofen (Motrin) 800 mg PO Q8H PRN PRN Reason: mild pain or fever Ibuprofen (Motrin) 400 mg PO Q4H PRN PRN Reason: Pain Ibuprofen (Motrin) 800 mg PO Q6H PRN PRN Reason: Pain Ketorolac Tromethamine (Toradol) 30 mg IVPUSH Q6H [facility] Stop: 04/03/17 21:31 Last Admin: 04/03/17 15:08 Dose: 30 mg Lidocaine HCl (Xylocaine 1%) 50 ml INJECT .ONCE PRN PRN Reason: Laceration repair Meperidine HCl (Demerol) 12.5 mg IVPUSH ONETIME ONE Stop: 04/02/17 17:40 Last Admin: 04/03/17 07:46 Dose: Not Given Meperidine HCl (Demerol) 12.5 mg IVPUSH ONETIME ONE Stop: 04/02/17 18:01 Last Admin: 04/03/17 04:55 Dose: Not Given Meperidine HCl (Demerol) Confirm Administered Dose 50 mg .ROUTE .STK-MED ONE Stop: 04/02/17 17:44 Last Admin: 04/02/17 17:48 Dose: 12.5 mg Methylergonovine Maleate (Methergine) 0.2 mg IM ASDIRECTED PRN PRN Reason: Post Hemorrhage Methylergonovine Maleate (Methergine) Confirm Administered Dose 0.2 mg .ROUTE .STK-MED ONE Stop: 04/02/17 15:51 Misoprostol (Cytotec) 200 mcg PO .ONCE PRN PRN Reason: Post Hemorrhage Morphine Sulfate (Duramorph Pf) Confirm Administered Dose 10 mg .ROUTE .STK-MED ONE Stop: 04/02/17 16:41 Nalbuphine HCl (Nubain) 10 mg IVPUSH Q1H PRN PRN Reason: Pain (severe 7-10) Stop: 04/01/17 17:30 Nalbuphine HCl (Nubain) 2.5 mg IVPUSH Q3H PRN PRN Reason: Pruritis Stop: 04/03/17 17:41 Naloxone HCl (Narcan) 0.1 mg IVPUSH ONETIME PRN PRN Reason: RR<6 WITH STIMULATION Stop: 04/03/17 17:41 Octyl Cyanoacrylate (Dermabond Advance) Confirm Administered Dose 1 applic .ROUTE .STK-MED ONE Stop: 04/02/17 17:04 Ondansetron HCl (Zofran) Confirm Administered Dose 4 mg .ROUTE .STConversation Media-MED ONE Stop: 04/02/17 16:37 Ondansetron HCl (Zofran) 4 mg IV Q4H PRN PRN Reason: Nausea/Vomiting Oxycodone HCl (Oxycodone) 5 mg PO Q2H PRN PRN Reason: Pain Oxycodone/Acetaminophen (Percocet 325-5 Mg) 1 tab PO .Q4HRS PRN PRN Reason: Breakthrough Pain Stop: 04/03/17 17:30 Last Admin: 04/02/17 21:10 Dose: 1 tab Oxycodone/Acetaminophen (Percocet 325-5 Mg) 1 tab PO Q4H PRN PRN Reason: Pain (moderate 4-6) Oxycodone/Acetaminophen (Percocet 325-5 Mg) 2 tab PO Q4H PRN PRN Reason: Pain (moderate 4-6) Oxytocin (Pitocin) Confirm Administered Dose 10 unit .ROUTE .STK-MED ONE Stop: 04/02/17 15:48 Oxytocin (Pitocin) Confirm Administered Dose 20 unit .ROUTE .STK-MED ONE Stop: 04/02/17 15:48 Phenylephrine HCl (Phenylephrine In Ns 100 Mcg/Ml) Confirm Administered Dose 1 mg .ROUTE .STK-MED ONE Stop: 04/02/17 16:56 Sodium Chloride (Saline Flush) 10 ml FLUSH ASDIRECTED PRN PRN Reason: Keep Vein Open Sodium Chloride (Saline Flush) 2.5 ml FLUSH ASDIRECTED PRN PRN Reason: Keep Vein Open Sterile Water (Sterile Water For Irrigation) 1,000 ml IRR ASDIRECTED PRN PRN Reason: delivery Sloan Perez ([place]) 1 pad TOP ASDIRECTED PRN PRN Reason: comfort care - Exam General: Reports: Alert, Oriented, Cooperative, No Acute Distress Lungs: Reports: Normal Respiratory Effort GI/Abdominal Exam: Soft, No Organomegaly, No Distention, Tender (Female) Exam: Vaginal Bleeding Rectal (Female) Exam: Deferred Back Exam: Reports: Full Range of Motion Extremities: Normal Range of Motion, Pedal Edema Skin: Reports: Warm, Dry, Intact Wound/Incisions: Reports: Healing Well, No Drainage (no erythema) Neurological: Reports: Normal Speech, Normal Tone Psy/Mental Status: Reports: Alert, Normal Affect, Normal Mood *Q Meaningful Use (DIS) - VTE *Q VTE Criteria *Q: - Stroke *Q Stroke Criteria *Q: - AMI *Q AMI Criteria *Q:
[2017-04-04 08:21] VITALS: BP 121/64
[2017-04-04] MEDS: Docusate Sodium 100 MG Cap PO SCH (08:34)
[2017-04-04] MEDS: Acetaminophen/oxyCODONE 325-5 MG Tab PO PRN (08:34)
== END 2017-04-04 12:30 | disposition home or self-care (01) | DRG 766 ==
LOC: MW.OBCHECK 15:01 → MW.OB 15:03 → UNDOADMOB 15:29 → MW.OBCHECK 15:29 → INTOOBSV 15:29 → OBSVTOIN 15:29 → MW.OB 04-02 16:49 → UNDODISIN 04-04 12:30
PROVIDERS: ADMIT Obstetrics & Gynecology; ATTEND Obstetrics & Gynecology
PROC: 10D00Z1 Extraction of Products of Conception, Low, Open Approach (ICD-10-PCS; principal; 2017-04-01)
DX: O32.4XX0 Maternal care for high head at term, not applicable or unspecified (principal); O33.9 Maternal care for disproportion, unspecified; Z3A.38 38 weeks gestation of pregnancy; Z37.0 Single live birth
CPT/HCPCS: 01967; 01968; 01996; 36415; 59025; 85014; 85018; 85027; 86850; 86900; 86901; A9270-GY; J0690; J1885; J2175; J2210; J2270; J2405; J2590; J3010; J7120